=== PATIENT | female | born 1960 | race Caucasian/White ===

== ENCOUNTER → 2016-12-24 | Outpatient (REF) | payer OTHER | LOC: M LAB REF 13:58 | PROVIDERS: ATTEND Physician Assistant Medical | DX: J32.0 Chronic maxillary sinusitis (principal) ==

== ENCOUNTER → 2020-01-08 | Outpatient (CLI) | payer BC, OTHER ==
--- NOTE | 2020-01-08 20:13 | REPVR ---
PROCEDURE INFORMATION: Exam: MR Lumbar Spine Without Contrast. Exam date and time: 01/08/2020 1:46 PM Age: 59 years old Clinical indication: Pain; Other: Lumbar radiculopathy TECHNIQUE: Imaging protocol: Multiplanar magnetic resonance images of the lumbar spine without intravenous contrast. COMPARISON: No relevant prior studies available. FINDINGS: Grade 1 anterolisthesis of L4 on L5. Vertebral body heights are preserved. Multilevel disc desiccation. There is mild degenerative endplate signal without evidence of discitis/osteomyelitis. Conus medullaris terminates T12-L1. No epidural fluid collection. L1-L2: Mild bilateral facet joint arthropathy and minimal disc bulge. No significant central or foraminal stenosis. L2-L3: Mild disc bulge with right foraminal annular tear. There is mild bilateral facet joint arthropathy. No significant central canal stenosis. Mild bilateral foraminal stenosis. L3-L4: Mild disc bulge with moderate bilateral facet joint arthropathy and posterior laxity of ligamentum flavum. There is borderline central canal stenosis and mild bilateral foraminal stenosis. L4-L5: Mild disc bulge with superimposed right subarticular caudally migrating extrusion extending up to 5 mm below the adjacent endplate. Mild bilateral facet joint arthropathy. There is no significant central canal stenosis. There is mass effect upon the traversing right L5 nerve root at the right lateral recess. Moderate right foraminal stenosis. L5-S1: Mild disc bulge and mild bilateral facet joint arthropathy. No significant central canal stenosis. There is mild bilateral foraminal stenosis. 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 Please correlate for symptomatology referable to the right L5 nerve. Electronically signed by: Johnson Avendaño On 01/08/2020 20:12:41 PM
== END ==
LOC: M RAD 12:54
DX: M51.16 Intervertebral disc disorders with radiculopathy, lumbar region (principal); M48.061 Spinal stenosis, lumbar region without neurogenic claudication